=== PATIENT | female | born 2000 | race Two or more races ===

== ENCOUNTER 2023-03-31 13:23 | Emergency (ER) | payer OTHER ==
[~2023-03-31] VITALS: Ht 167.6 cm; Wt 81.8 kg
[2023-03-31 14:06] LABS: Basophils # (auto) 0.1 10 ^3/uL (0-0.2); Eosinophils # (auto) 0.1 10 ^3/uL (0-0.8); Lymphocytes # (auto) 2.1 10 ^3/uL (0.4-5.4); Mean Corpuscular Hgb Conc. 30.7 g/dL (32.0-36.0); Monocytes # (auto) 0.7 10 ^3/uL (0-1.3); Neutrophils # (auto) 4.2 10 ^3/uL (1.6-8.6); Nucleated Red Blood Cells % 0.2 %; Red Cell Distribution Width 19.8 % (11.8-14.3); White Blood Cell 7.1 10^3/uL (4.4-10.8)
[2023-03-31 14:07] LABS: Basophils % (auto) 0.8 % (0.0-2.0); Eosinophils % (auto) 1.3 % (0.0-7.0); Hematocrit 27.4 % (36.0-46.0); Hemoglobin 8.4 g/dL (12.2-16.2); Lymphocytes % (auto) 29.2 % (10.0-50.0); Mean Corpuscular Hemoglobin 18.3 pg (28.0-32.0); Mean Corpuscular Volume 59.7 fL (80.0-100.0); Monocytes % (auto) 9.9 % (0.0-12.0); Neutrophils % (auto) 58.8 % (37.0-80.0); Red Blood Cells 4.59 10^6/uL (4.0-5.20)
[2023-03-31 14:19] LABS: INR 0.97 (0.9-1.15); Partial Thromboplastin Time 21.5 sec (24.6-33.4)
[2023-03-31 14:32] LABS: Calcium 8.5 mg/dL (8.5-10.1)
[2023-03-31 14:35] LABS: BUN/Creatinine Ratio 10.1 (10.0-20.0); Bilirubin, Total 0.3 mg/dL (0.2-1.0); Potassium 4.4 mmol/L (3.5-5.1)
[2023-03-31] MEDS ORDERED: IOHEXOL 300 MG/ML 100ML BOTTLE IJ ONE (14:41)
[2023-03-31 15:01] LABS: Urine Bacteria FEW /hpf (None Seen); Urine Blood Negative /uL (Negative); Urine Hyaline Cast FEW /lpf (0 - 2); Urine Mucus FEW (None Seen); Urine Specific Gravity 1.026 (1.001-1.035); Urine WBC 37 /hpf (0 - 5)
[2023-03-31 15:23] LABS: Amphetamine Screen, Urine NEGATIVE (NEGATIVE); Barbiturate Scree,Urine NEGATIVE (NEGATIVE); Benzodiazephine Screen, Urine NEGATIVE (NEGATIVE); Cannabinoid Screen, Urine NEGATIVE (NEGATIVE); Cocaine Screen, Urine NEGATIVE (NEGATIVE); Opiate Scree,Urine NEGATIVE (NEGATIVE); Phencyclidine Screen, Urine NEGATIVE (NEGATIVE)
[2023-03-31] MEDS ORDERED: KETOROLAC TROMETH 30 MG/ML 1ML VIAL IV ONE (17:00)
[2023-03-31] MEDS ORDERED: SODIUM CHLORIDE 0.9% 1,000 ML IV ONE (17:00)
[2023-03-31] MEDS ORDERED: IPRATROPIUM BROM 0.5 MG/2.5ML INH SOL ONE (18:50)
[2023-03-31] MEDS ORDERED: ALBUTEROL SULF 2.5 MG/0.5ML(0.5%) NEB SOLN ONE (18:50)
[2023-03-31] MEDS ORDERED: MIDAZOLAM DRIP 50 mg/50mL 50 ML IV SCH (19:00)
[2023-03-31] MEDS ORDERED: PROPOFOL 100 ML IV SCH (19:00)
[2023-03-31] MEDS ORDERED: ROCURONIUM 10MG/ML 10ML VIAL IV ONE (19:00)
[2023-03-31] MEDS ORDERED: NOREPINEPHRINE 8 MG/250ML KIT 250 ML IV SCH (19:00)
[2023-03-31] MEDS ORDERED: ETOMIDATE (2MG/ML) 20ML VIAL IV ONE (19:00)
[2023-03-31 19:05] VITALS: BP 108/66
== END 2023-03-31 19:34 | disposition short-term general hospital (02) ==
LOC: ER 13:23
DX: S06.0X0A Concussion without loss of consciousness, initial encounter (principal); R56.9 Unspecified convulsions; R10.2 Pelvic and perineal pain; V87.8XXA Person injured in other specified noncollision transport accidents involving motor vehicle (traffic), initial encounter; Y93.89 Activity, other specified; Y92.89 Other specified places as the place of occurrence of the external cause; Y99.8 Other external cause status
CPT/HCPCS: 36415; 70450; 71260; 72125; 72131; 74177; 80053; 80307; 81001; 84484; 84702; 85025; 85610; 85730; 96361; 96374; 99285; J1885; J7030; Q9967